=== PATIENT | female | born 1980 | race Caucasian/White ===

== ENCOUNTER → 2016-10-24 | Outpatient (CLI) | payer OTHER ==
[~2016-10-24] MED LIST: BACL-19 PO; BUPR300T49 PO; CHOL500014 PO; CLON2TAB PO; DIAZ5TAB PO; ETON1VAG VG; HYDR-3144 PO; IBUP200T48 PO; LAMO100T5 PO; LEVO125T PO; LEVO150T5 PO; LEVO50TA5 PO; LIOT5TAB6 PO; METH750T87 PO; MULT-706 PO; MULT-82 PO; NORT10CA PO; ONDA4TAB10 PO; OXYC-229 PO; OXYC-302 PO; THYR130T2 PO; TIZA2TAB PO; [UNRECOGNIZED DRUG - OTHER] PO; hydrocortisone PO; nature thyroid PO
[2016-10-24 10:29] LABS: HEMOGLOBIN 16.1 g/dL (11.7-16.4)
[2016-10-24 10:38] LABS: BLOOD UREA NITROGEN 14 mg/dL (7-18)
== END | disposition home or self-care (01) ==
LOC: STAR 09:14
PROVIDERS: ATTEND Neurological Surgery
DX: Z01.818 Encounter for other preprocedural examination (principal); M47.22 Other spondylosis with radiculopathy, cervical region; M95.4 Acquired deformity of chest and rib; M47.894 Other spondylosis, thoracic region; R79.1 Abnormal coagulation profile; Z85.89 Personal history of malignant neoplasm of other organs and systems
CPT/HCPCS: 36415; 71020; 80048; 81003; 85025; 85610; 85730; 93005

== ENCOUNTER 2016-10-31 10:18 | Inpatient (IN) | payer OTHER ==
[2016-10-24 09:47] VITALS: BP 119/77
[~2016-10-31] VITALS: Ht 170.2 cm; Wt 71.0 kg
[~2016-10-31 10:18] MED LIST changes: +BACITRACIN 50,000 UNIT ONE; +BUPIVACAINE/PF-EPI 0.5% 1:200K ONE; +FENTANYL PF 250 MCG/5ML ONE; +MIDAZOLAM 1 MG/ML, 2ML ONE; +THROMBIN 5,000 UNIT VIAL TP ONE
[2016-10-31] MEDS ORDERED: ONDA-39 PO (11:49)
[2016-10-31] MEDS ORDERED: LACTATED RINGERS 1,000 ML IV SCH (11:59)
[2016-10-31] MEDS ORDERED: ONDANSETRON 2MG/ML, 2ML ONE ×2 (12:27→14:26)
[2016-10-31] MEDS ORDERED: PROPOFOL 10 MG/ML, 20ML ONE (12:27)
[2016-10-31] MEDS ORDERED: DEXAMETHASONE 4 MG/ML, 1ML ONE (12:27)
[2016-10-31] MEDS ORDERED: ROCURONIUM 10 MG/ML ONE (12:27)
[2016-10-31] MEDS ORDERED: CEFAZOLIN 1,000 MG ONE (12:27)
[2016-10-31] MEDS ORDERED: SUCCINYLCHOLINE 20 MG/ML, 10ML ONE (12:27)
[2016-10-31] MEDS ORDERED: HYDROmorphone 2 MG/ML, 1ML ONE (14:23)
[2016-10-31] MEDS ORDERED: ACETAMINOPHEN 325 MG TABLET PO PRN (14:30)
[2016-10-31] MEDS ORDERED: METOCLOPRAMIDE 5 MG/ML, 2ML IV PRN (14:30)
[2016-10-31] MEDS ORDERED: LABETALOL 5MG/ML, 20ML IV PRN ×2 (14:30→17:00)
[2016-10-31] MEDS ORDERED: DIPHENHYDRAMINE 50 MG/ML, 1ML IVPush ONE (14:30)
[2016-10-31] MEDS ORDERED: FENTANYL PF 100 MCG/2ML IV PRN (14:30)
[2016-10-31] MEDS ORDERED: OXYcodone 5 MG/5 ML ORAL.SOL UDC PO PRN (14:30)
[2016-10-31] MEDS ORDERED: ONDANSETRON 2MG/ML, 2ML IVPush PRN (14:30)
[2016-10-31] MEDS ORDERED: HYDROmorphone 1 MG/ML, 1ML IV PRN (14:30)
[2016-10-31] MEDS ORDERED: hydrALAzine 20 MG/ML, 1ML IV PRN (14:30)
[2016-10-31] MEDS ORDERED: DIPHENHYDRAMINE 50 MG/ML, 1ML ONE (14:37)
[2016-10-31] MEDS ORDERED: DIAZEPAM 5 MG/ML, 2ML ONE (14:37)
[2016-10-31] MEDS ORDERED: DIAZEPAM 5 MG/ML, 2ML IV ONE (15:00)
[2016-10-31] MEDS ORDERED: DIAZEPAM 5 MG/ML, 2ML IV PRN (17:00)
[2016-10-31] MEDS ORDERED: MAGNESIUM HYDROXIDE 8%, 30ML UDC PO PRN (17:00)
[2016-10-31] MEDS ORDERED: morphine SULFATE 10 MG/ML, 1ML IV PRN (17:00)
[2016-10-31] MEDS ORDERED: DIPHENHYDRAMINE 50 MG/ML, 1ML IM PRN ×2 (17:00)
[2016-10-31] MEDS ORDERED: TIZANIDINE 4MG TABLET PO PRN (17:00)
[2016-10-31] MEDS ORDERED: DIPHENHYDRAMINE 50 MG CAPSULE PO PRN ×2 (17:00)
[2016-10-31] MEDS ORDERED: BISACODYL 10 MG SUPP PR PRN (17:00)
[2016-10-31] MEDS: BUPROPION 75 MG TABLET PO SCH (17:39)
[2016-10-31] MEDS: NS + 20MEQ KCL 1,000 ML IV SCH (17:49)
[2016-10-31] MEDS: LEVOTHYROXINE 50 MCG TABLET PO SCH (19:50)
[2016-10-31] MEDS: LIOTHYRONINE 25 MCG TABLET PO SCH (19:51)
[2016-10-31] MEDS: CEFAZOLIN PMX 1GM/50ML 50 ML IVPB SCH (20:11)
[2016-10-31] MEDS: DIAZEPAM 5 MG TABLET PO PRN (20:48)
[2016-10-31] MEDS ORDERED: LIOTHYRONINE 25 MCG TABLET PO SCH (21:00)
[2016-10-31 22:03] VITALS: BP 119/66
[2016-10-31] MEDS: ONDANSETRON 2MG/ML, 2ML IV PRN (23:56)
[2016-11-01] MEDS: DIAZEPAM 5 MG TABLET PO PRN ×3 (02:28→14:39)
[2016-11-01] MEDS: PROMETHAZINE 25 MG/ML, 1ML IM PRN ×2 (02:28→14:39)
[2016-11-01 03:16] VITALS: BP 114/62
[2016-11-01] MEDS: CEFAZOLIN PMX 1GM/50ML 50 ML IVPB SCH (04:38)
[2016-11-01] MEDS: NS + 20MEQ KCL 1,000 ML IV SCH (04:39)
[2016-11-01 06:32] VITALS: BP 96/59
[2016-11-01] MEDS: LEVOTHYROXINE 50 MCG TABLET PO SCH (06:47)
[2016-11-01] MEDS: ONDANSETRON 2MG/ML, 2ML IV PRN (08:09)
[2016-11-01] MEDS ORDERED: LAMOTRIGINE 200 MG TABLET PO SCH ×2 (09:00)
[2016-11-01] MEDS ORDERED: SENNA/DOCUSATE TABLET PO SCH (09:00)
[2016-11-01] MEDS: BUPROPION 75 MG TABLET PO SCH (09:41)
[2016-11-01] MEDS: LIOTHYRONINE 25 MCG TABLET PO SCH (09:41)
[2016-11-01] MEDS: HYDROcodone/APAP 10/325 MG TABLET PO PRN ×2 (10:05→10:52)
[2016-11-01] MEDS ORDERED: ONDANSETRON 2MG/ML, 2ML IV PRN (12:30)
[2016-11-01 12:32] VITALS: BP 118/74
[2016-11-01] MEDS ORDERED: SENN-31 PO (14:22)
[2016-11-01] MEDS ORDERED: DIAZ5TAB4 PO (14:24)
[2016-11-01] MEDS ORDERED: MAGN400O4 PO (14:30)
== END 2016-11-01 15:05 | disposition home or self-care (01) | DRG 518 ==
LOC: OUT 10:18 → 4NOR 16:08 → OUT 16:23 → 4NOR 16:24 → DCLOUNGE 11-01 14:48
PROVIDERS: ADMIT Neurological Surgery; ATTEND Neurological Surgery
PROC: 01N10ZZ Release Cervical Nerve, Open Approach (ICD-10-PCS; 2016-10-31)
PROC: 0RR30JZ Replacement of Cervical Vertebral Disc with Synthetic Substitute, Open Approach (ICD-10-PCS; principal; 2016-10-31 13:00)
DX: M50.11 Cervical disc disorder with radiculopathy, high cervical region (principal); E89.0 Postprocedural hypothyroidism; G43.909 Migraine, unspecified, not intractable, without status migrainosus; G56.00 Carpal tunnel syndrome, unspecified upper limb; M47.22 Other spondylosis with radiculopathy, cervical region; Z85.850 Personal history of malignant neoplasm of thyroid; Z90.89 Acquired absence of other organs; Z86.011 Personal history of benign neoplasm of the brain; Z90.710 Acquired absence of both cervix and uterus; Z98.51 Tubal ligation status; Z79.899 Other long term (current) drug therapy; Z82.61 Family history of arthritis; Z82.49 Family history of ischemic heart disease and other diseases of the circulatory system; Z81.8 Family history of other mental and behavioral disorders
CPT/HCPCS: 36415; 72040; 86850; 86900; C1776; J0690; J1100; J1170; J2250; J2270; J2405; J2550; J2704; J3010; J3360; J3480; J0330; J1200; J7120

== ENCOUNTER → 2016-12-15 | Outpatient (CLI) | payer OTHER ==
[~2016-12-15] MED LIST changes: -BACITRACIN 50,000 UNIT ONE; -BUPIVACAINE/PF-EPI 0.5% 1:200K ONE; +DIAZ5TAB4 PO; -FENTANYL PF 250 MCG/5ML ONE; +MAGN400O4 PO; -MIDAZOLAM 1 MG/ML, 2ML ONE; +ONDA-39 PO; +SENN-31 PO; -THROMBIN 5,000 UNIT VIAL TP ONE
== END | disposition home or self-care (01) ==
LOC: EDSTATUS 07:00 → CFH 07:34
PROVIDERS: ATTEND Neurological Surgery
DX: M50.322 Other cervical disc degeneration at C5-C6 level (principal); M47.892 Other spondylosis, cervical region; M25.78 Osteophyte, vertebrae; M43.22 Fusion of spine, cervical region
CPT/HCPCS: 72050; 72141

== ENCOUNTER → 2017-06-20 | Outpatient (CLI) | payer OTHER ==
[~2017-06-20] MED LIST changes: -CHOL500014 PO; +CHOL500045 PO; -HYDR-3144 PO; +HYDR-3245 PO; +LIOT5TAB10 PO; -LIOT5TAB6 PO; -MAGN400O4 PO; +MAGN400O7 PO; +MULT-224 PO; -MULT-82 PO; -ONDA-39 PO; +ONDA4TAB12 PO; -OXYC-229 PO; +OXYC-307 PO
== END | disposition home or self-care (01) ==
LOC: RAD 10:28
PROVIDERS: ATTEND Registered Nurse
DX: M50.221 Other cervical disc displacement at C4-C5 level (principal); M50.223 Other cervical disc displacement at C6-C7 level; M47.892 Other spondylosis, cervical region; M43.22 Fusion of spine, cervical region; D35.2 Benign neoplasm of pituitary gland; Z98.890 Other specified postprocedural states
CPT/HCPCS: 72050; 72156